=== PATIENT | female | born 2005 | race Hispanic/Latino ===

== ENCOUNTER 2024-09-16 15:10 | Emergency (ER) | payer OTHER ==
[~2024-09-16] VITALS: Ht 170.2 cm; Wt 64.4 kg
[~2024-09-16 15:10] MED LIST: CEPHALEXIN500 MG PO
[2024-09-16] MEDS: KETOROLAC TROMETHAMINE 30 MG/ML VIAL IV STA (15:41)
[2024-09-16] MEDS: ONDANSETRON HCL INJ 2MG/ML 2ML 2 MG/ML VIAL IV STA (15:41)
[2024-09-16] MEDS: SODIUM CHLORIDE 0.9% 1000ML 1,000 ML IV SCH (15:41)
[2024-09-16 15:48] LABS: CORONAVIRUS COVID-19 AG NEGATIVE (NEGATIVE); INFLUENZA A AG NEGATIVE (NEGATIVE); INFLUENZA B AG NEGATIVE (NEGATIVE)
[2024-09-16 15:52] LABS: BASOPHILS % 0.3 % (0.0-1.0); EOSINOPHILS % 0.1 % (0.0-6.0); HEMATOCRIT 39.7 % (34.2-44.1); LYMPHOCYTES # (AUTO) 0.8 (1.0-3.2); LYMPHOCYTES % 6.8 % (18.0-39.1); MEAN CORPUSCULAR HEMOGLOBIN 30.2 pg (28-32); MEAN CORPUSCULAR HGB CONC 32.7 g/dL (31-35); MEAN CORPUSCULAR VOLUME 92.3 fL (81-99); MONOCYTES # (AUTO) 0.6 (0.2-0.8); MONOCYTES % 5.2 % (4.4-11.3); NEUTROPHILS % 87.2 % (38.7-80.0); PLATELET COUNT 163 x10e3/uL (140-360); RED CELL DISTRIBUTION WIDTH 12.2 % (11.7-14.4); WHITE BLOOD COUNT 11.42 x10e3/uL (4.8-10.8)
[2024-09-16 16:09] LABS: ANION GAP 16.9 mmol/L (8-16); CALCIUM 9.8 mg/dL (8.4-10.2); CREATININE, SERUM 0.75 mg/dL (0.57-1.11)
[2024-09-16 16:16] LABS: POTASSIUM 2.9 mmol/L (3.5-5.1)
[2024-09-16] MEDS: POTASSIUM CHLORIDE 20 MEQ TAB CR PO STA (17:10)
[2024-09-16 17:11] LABS: BILIRUBIN,URINE NEGATIVE (NEGATIVE); CLARITY,URINE CLEAR (CLEAR); COLOR,URINE YELLOW (YELLOW); GLUCOSE, URINE NEGATIVE (NEGATIVE); KETONES,URINE 2+ (NEGATIVE); LEUKOCYTE ESTERASE ,URINE NEGATIVE (NEGATIVE); NITRITE,URINE NEGATIVE (NEGATIVE); PH,URINE 6.5 (5 - 7); PROTEIN,URINE DIPSTICK 1+ (NEGATIVE); URINE UROBILINOGEN 0.2 mg/dL (0.2 - 1)
[2024-09-16 17:15] VITALS: PULSE 82; RESP 16; TEMP 99.1; O2SAT 100
[2024-09-16 17:20] LABS: WBC,URINE (MAN) 0-5 /HPF (0-5)
[2024-09-16 17:21] LABS: BACTERIA,URINE MODERATE /HPF; EPITHELIAL CELLS,URINE MANY /LPF
[2024-09-16] MEDS ORDERED: ONDANSETRON ODT4 MG PO (17:36)
== END 2024-09-16 17:57 | disposition home or self-care (01) ==
LOC: ER 15:33
DX: R50.9 Fever, unspecified (principal); J06.9 Acute upper respiratory infection, unspecified; R05.9 Cough, unspecified; R11.2 Nausea with vomiting, unspecified; F17.210 Nicotine dependence, cigarettes, uncomplicated
CPT/HCPCS: 36415; 80048; 81001; 85025; 87428; 99284; J1885; J2405; J7030